=== PATIENT | female | born 1950 | race Caucasian/White ===

== ENCOUNTER 2016-11-02 00:28 | Emergency (ER) | payer OTHER ==
[~2016-11-02] VITALS: Ht 172.7 cm; Wt 120.0 kg
[2016-11-02 00:30] VITALS: BP 208/106; PULSE 99; RESP 16; TEMP 99; O2SAT 98
[2016-11-02] MEDS ORDERED: KETOROLAC TROMETHAMINE 30 MG/ML (IVP) VIAL IV PUSH ONE (01:15)
[2016-11-02 01:16] VITALS: BP 153/72; PULSE 93; RESP 20; TEMP 98.3
[2016-11-02 02:11] LABS: BICARBONATE 26.7 MEQ/L (21.0-32.0); POTASSIUM 4.5 MEQ/L (3.5-5.1)
--- NOTE | 2016-11-02 02:23 | RADRPT ---
EXAM DATE/TIME: 11/02/2016 01:50 [place] COMPARISON: No previous studies available for comparison. INDICATIONS : Right calf pain and swelling. MEDICAL HISTORY : Right calf pain. Right calf swelling. SURGICAL HISTORY : Total knee replacement, right. ENCOUNTER: Initial ACUITY: 1 day PAIN SCORE: 7/10 LOCATION: Right leg. TECHNIQUE: Venous ultrasound of the leg was performed from the inguinal ligament to the proximal calf. Real-parker e, color Doppler and spectral tracing, compression and augmentation techniques were used. FINDINGS: There is normal compressibility of the deep venous system from the inguinal region to the proximal ca lf. No echogenic clot is seen in the lumen of the common femoral, femoral, popliteal, and posterior tibial veins. There is a normal response of the venous system to proximal and distal augmentation an d respiration. CONCLUSION: Normal examination. Gerry Medina MD on November 02, 2016 at 2:21 Board Certified Radiologist. This report was verified electronically.
[2016-11-02 02:28] LABS: CKMB 1.1 NG/ML (0.5-3.6)
[2016-11-02] MEDS ORDERED: IBUP400T20 PO (02:52)
--- NOTE | 2016-11-02 02:53 | PD ---
HPI Chief Complaint: Pain: Acute or Chronic Time Seen by Provider: 00:54 Travel History International Travel<30 days: No Contact w/Intl Traveler<30days: No Traveled to known affect area: No History of Present Illness HPI 65yo F presents to the ED with c/o right calf pain and pain behind her right knee today. States she started with a administrative personal assistant today and was doing leg press and other exercise and then started having this pain. Denies any fall or direct trauma. Denies any fever, chest pain, sob, n/v, abdominal pain, focal weakness or numbness. PFSH Past Medical History Diminished Hearing: No Immunizations Current: No Influenza Vaccination: No ?: Not Menopausal: Yes : 3 Para: 2 : 1 Social History Alcohol Use: Yes (socially) Tobacco Use: No Substance Use: No Allergies-Medications (Allergen,Severity, Reaction): Coded Allergies: No Known Allergies (Unverified , 11/02/16) Reported Meds & Prescriptions Reported Meds & Active Scripts Active No Active Prescriptions or Reported Medications Review of Systems Except as stated in HPI: all other systems reviewed are Neg Physical Exam Narrative GENERAL: 65yo F in mild distress. SKIN: Focused skin assessment warm/dry. HEAD: Atraumatic. Normocephalic. CARDIOVASCULAR: Regular rate and rhythm. No murmur appreciated. RESPIRATORY: No accessory muscle use. Clear to auscultation. Breath sounds equal bilaterally. GASTROINTESTINAL: Abdomen soft, non-tender, nondistended. No rebound tenderness or guarding. MUSCULOSKELETAL: Bilateral lower extremity edema. RLE: +TTP posterior knee and calf. No erythema. Good range of motion in right knee. Sensation intact. Distal pulses intact. NEUROLOGICAL: Awake and alert. No obvious cranial nerve deficits. Motor grossly within normal limits. Normal speech. PSYCHIATRIC: Appropriate mood and affect; insight and judgment normal. Data Data Last Documented VS Vital Signs Date Time Temp Pulse Resp B/P (MAP) Pulse Ox O2 Delivery O2 Flow Rate FiO2 11/02/16 01:16 98.3 93 20 153/72 (99) Room Air 11/02/16 00:30 98 Orders Orders Us Leg Venous Doppler (11/02/16 ) Basic Metabolic Panel (Bmp) (11/02/16 01:12) Creatine Kinase (Cpk) (11/02/16 01:12) Ketorolac Inj (Toradol Inj) (11/02/16 01:15) CKMB (11/02/16 01:15) CKMB% (11/02/16 01:15) Labs Laboratory Tests Test 11/02/16 01:15 Blood Urea Nitrogen 20 MG/DL Creatinine 0.87 MG/DL Random Glucose 94 MG/DL Calcium Level 8.9 MG/DL Sodium Level 139 MEQ/L Potassium Level 4.5 MEQ/L Chloride Level 105 MEQ/L Carbon Dioxide Level 26.7 MEQ/L Anion Gap 7 MEQ/L Estimat Glomerular Filtration Rate 65 ML/MIN Total Creatine Kinase 226 U/L Creatine Kinase MB 1.1 NG/ML Creatine Kinase MB % 0.5 % MDM Medical Decision Making Medical Screen Exam Complete: Yes Emergency Medical Condition: Yes Differential Diagnosis Musculoskeletal cramps vs. muscle strain vs. rhabdomyolysis vs. DVT Narrative Course 65yo F with posterior right knee and calf pain after exercising with administrative personal assistant today. Denies any fever and has no signs of infection. CPK only mildly elevated at 226. BUN mildly elevated. Creatinine normal at 0.87. Pt tolerating PO and can hydrate orally. US right lower extremity showed no DVT. Pt given toradol 30mg IV and reevaluated at bedside. She feels better and able to ambulate in the ED. Return precautions given. Diagnosis Primary Impression: Musculoskeletal pain Patient Instructions: General Instructions Departure Forms: Tests/Procedures Additional Instructions: Please follow up with your primary care physician in 3-7 days. Return to the ED if symptoms worsen. Med/Other Pt SpecificInfo: Prescription(s) given Scripts Ibuprofen (Ibuprofen) 400 Mg Tab 400 MG PO Q6H Y for PAIN SCALE 1 TO 4, #20 TAB 0 Refills Prov: Mary Laureano DO 11/02/16 Disposition: 01 DISCHARGE HOME Condition: Stable Mary Laureano DO Nov 02, 2016 02:53
== END 2016-11-02 03:44 | disposition home or self-care (01) ==
LOC: NEPE 00:28
DX: M79.1 Myalgia (principal); M79.661 Pain in right lower leg
CPT/HCPCS: 80048; 82550; 82552; 93971; 96374; 99285; J1885